=== PATIENT | male | born 1990 | race African-American/Black ===

== ENCOUNTER 2017-09-23 20:14 | Inpatient (IN) | payer MEDICAID, OTHER ==
[~2017-09-23] VITALS: Ht 180.3 cm; Wt 113.4 kg
[~2017-09-23 20:14] MED LIST: ABILIFY
[2017-09-23] MEDS ORDERED: ONDANSETRON HCL 4MG/2ML VIAL IV ONE (21:00)
[2017-09-23] MEDS ORDERED: ACETAMINOPHEN 325MG TABLET PO STA (22:39)
[2017-09-23] MEDS ORDERED: SODIUM CHLORIDE 0.9% 1000ML BAG (SEPSIS BOLUS) IV ONE (22:45)
[2017-09-23 22:53] LABS: BASOPHILS % 0.7 % (0.0-2.0); EOSINOPHILS % 1.7 % (0.0-5.0); HEMATOCRIT. 44.3 % (42.0-52.0); HEMOGLOBIN. 14.8 g/dL (14.0-18.0); LYMPHOCYTES % 9.2 % (20.0-50.0); MEAN CORPUSCULAR HEMOGLOBIN 28.5 pg (28.0-32.0); MEAN CORPUSCULAR VOLUME 85.7 fL (80.0-94.0); MEAN PLATELET VOLUME 10.1 fl (7.4-10.4); MONOCYTES % 7.3 % (2.0-8.0); NEUTROPHILS % 81.1 % (40.0-76.0); PLATELET 229 x1000/uL (130-400); RED BLOOD CELL COUNT 5.17 mill/uL (4.7-6.1); RED CELL DISTRIBUTION WIDTH 13.5 % (11.6-14.6)
[2017-09-23 22:54] LABS: CHLORIDE 105 mEq/L (98-107)
[2017-09-23 23:00] LABS: PARTIAL THROMBOPLASTIN TIME 28.6 sec (23.4-31.0); PROTHROMBIN TIME 10.7 sec (9.4-11.6)
[2017-09-23] MEDS ORDERED: LEVOFLOXACIN 750MG PREMIX 150 ML IV ONE (23:30)
[2017-09-24 03:48] VITALS: BP 117/64
[2017-09-24 03:51] VITALS: BP 117/64
[2017-09-24] MEDS ORDERED: ACETAMINOPHEN 325MG TABLET PO PRN (07:00)
[2017-09-24] MEDS ORDERED: IPRATROPIUM/ALBUTEROL 0.5-3(2.5)MG/3ML NEB HHN PRN (07:00)
[2017-09-24 08:00] VITALS: BP 129/71
[2017-09-24] MEDS ORDERED: SODIUM CHLORIDE 0.45% 1,000 ML IV SCH (08:00)
[2017-09-24] MEDS ORDERED: CEFTRIAXONE 1 G PREMIX 50 ML IV SCH (09:00)
[2017-09-24] MEDS ORDERED: AZITHROMYCIN 500 MG TABLET PO SCH (09:00)
[2017-09-24 10:12] LABS: BASOPHILS % 1.1 % (0.0-2.0); EOSINOPHILS % 2.9 % (0.0-5.0); HEMATOCRIT. 40.2 % (42.0-52.0); HEMOGLOBIN. 13.3 g/dL (14.0-18.0); LYMPHOCYTES % 32.3 % (20.0-50.0); MEAN CORPUSCULAR HEMOGLOBIN 28.5 pg (28.0-32.0); MEAN CORPUSCULAR VOLUME 86.3 fL (80.0-94.0); MEAN PLATELET VOLUME 10.5 fl (7.4-10.4); MONOCYTES % 7.7 % (2.0-8.0); PLATELET 222 x1000/uL (130-400); RED BLOOD CELL COUNT 4.66 mill/uL (4.7-6.1); RED CELL DISTRIBUTION WIDTH 13.9 % (11.6-14.6)
[2017-09-24 10:34] LABS: CHLORIDE 107 mEq/L (98-107)
[2017-09-24 12:00] VITALS: BP 122/76
[2017-09-24] MEDS ORDERED: SODIUM CHL 0.45% + KCL 20MEQ/L 1,000 ML IV SCH (14:00)
[2017-09-24 16:00] VITALS: BP 124/98
[2017-09-24 16:32] LABS: CREATINE KINASE 326 IU/L (39-308)
[2017-09-24 16:33] LABS: CREATINE KINASE MB FRACTION < 0.5 ng/mL (0.5-3.6)
[2017-09-24] MEDS ORDERED: METRONIDAZOLE 500 MG PREMIX 100 ML IV SCH (17:00)
[2017-09-24 17:03] VITALS: BP 122/79
[2017-09-24] MEDS ORDERED: IPRATROPIUM/ALBUTEROL 0.5-3(2.5)MG/3ML NEB HHN SCH (18:00)
[2017-09-24] MEDS ORDERED: GUAIFENESIN 600MG ER TABLET PO SCH (21:00)
[2017-09-25] MEDS ORDERED: LEVOFLOXACIN 500MG TABLET PO SCH ×2 (11:00)
== END 2017-09-24 17:30 | disposition home or self-care (01) | DRG 720 ==
LOC: ER 20:14 → EDBEDREQSVC 22:44 → EDBEDREQ 23:42 → 6WST 23:57 → ENRESERV 23:57
PROVIDERS: ADMIT Internal Medicine; ATTEND Internal Medicine
DX: A41.9 Sepsis, unspecified organism (principal); J96.00 Acute respiratory failure, unspecified whether with hypoxia or hypercapnia; J69.0 Pneumonitis due to inhalation of food and vomit; F84.0 Autistic disorder; E87.6 Hypokalemia; R13.10 Dysphagia, unspecified
CPT/HCPCS: 36415; 71045; 80048; 80053; 82550; 82553; 83605; 83880; 84145; 84484; 85025; 85379; 85610; 85730; 87040; 93005; 93970; 96365; 96366; 96375; 99291; J0696; J1956; J2405; J3480; J3490; J7030

== ENCOUNTER 2022-06-02 13:30 | Inpatient (IN) | payer MEDICAID, OTHER ==
[~2022-06-02] VITALS: Ht 170.2 cm; Wt 118.4 kg
[2022-06-02] MEDS ORDERED: SODIUM CHLORIDE 0.9% 2,000 ML IV ONE (14:00)
[2022-06-02 14:02] LABS: BASOPHILS % 0.1 % (0.0-2.0); EOSINOPHILS % 0.3 % (0.0-5.0); HEMATOCRIT. 43.6 % (42.0-52.0); HEMOGLOBIN. 14.6 g/dL (14.0-18.0); LYMPHOCYTES % 8.7 % (20.0-50.0); MEAN CORPUSCULAR HEMOGLOBIN 28.8 pg (28.0-32.0); MEAN CORPUSCULAR VOLUME 85.9 fL (80.0-94.0); MEAN PLATELET VOLUME 9.5 fl (7.4-10.4); MONOCYTES % 4.2 % (2.0-8.0); NEUTROPHILS % 86.7 % (40.0-76.0); PLATELET 217 x1000/uL (130-400); RED BLOOD CELL COUNT 5.07 mill/uL (4.7-6.1); RED CELL DISTRIBUTION WIDTH 13.8 % (11.6-14.6)
[2022-06-02 14:10] LABS: CHLORIDE 106 mEq/L (98-107)
[2022-06-02] MEDS ORDERED: ACETAMINOPHEN 325MG TABLET PO ONE (14:15)
[2022-06-02] MEDS ORDERED: KETOROLAC 30MG/ML VIAL IV ONE (15:45)
[2022-06-02] MEDS ORDERED: DOCUSATE SODIUM 100MG CAPSULE PO PRN (18:30)
[2022-06-02] MEDS ORDERED: ACETAMINOPHEN 325MG TABLET PO PRN (18:30)
[2022-06-02] MEDS ORDERED: LORAZEPAM 0.5MG TABLET PO PRN (18:30)
[2022-06-02] MEDS ORDERED: IPRATROPIUM/ALBUTEROL 0.5-3(2.5)MG/3ML NEB HHN PRN (18:30)
[2022-06-02] MEDS ORDERED: ONDANSETRON HCL 4MG/2ML INJ IV PRN (18:30)
[2022-06-02] MEDS ORDERED: CLONIDINE 0.1MG TABLET PO PRN (18:30)
[2022-06-02] MEDS ORDERED: NALOXONE HCL 0.4MG/ML VIAL IV PRN (18:30)
[2022-06-02 20:00] VITALS: BP 143/89
[2022-06-02 20:14] VITALS: BP 143/89
[2022-06-02] MEDS ORDERED: ABIL5 PO (20:21)
[2022-06-02] MEDS: ACETAMINOPHEN 325MG TABLET PO PRN (20:38)
[2022-06-02] MEDS: HYDROCODONE/ACETAMINOPHEN 5/325MG TABLET PO PRN (23:26)
[2022-06-02 23:56] VITALS: BP 126/64
[2022-06-03 04:00] VITALS: BP 119/70
[2022-06-03] MEDS: HYDROCODONE/ACETAMINOPHEN 5/325MG TABLET PO PRN (04:01)
[2022-06-03 06:47] LABS: BASOPHILS % 0.4 % (0.0-2.0); HEMATOCRIT. 38.4 % (42.0-52.0); HEMOGLOBIN. 13.1 g/dL (14.0-18.0); LYMPHOCYTES % 44.3 % (20.0-50.0); MEAN CORPUSCULAR HEMOGLOBIN 29.6 pg (28.0-32.0); MEAN CORPUSCULAR VOLUME 86.6 fL (80.0-94.0); MEAN PLATELET VOLUME 10.2 fl (7.4-10.4); MONOCYTES % 7.8 % (2.0-8.0); NEUTROPHILS % 46.5 % (40.0-76.0); PLATELET 193 x1000/uL (130-400); RED BLOOD CELL COUNT 4.44 mill/uL (4.7-6.1); RED CELL DISTRIBUTION WIDTH 13.7 % (11.6-14.6)
[2022-06-03 07:29] LABS: CHLORIDE 106 mEq/L (98-107)
[2022-06-03 07:49] VITALS: BP 123/74
[2022-06-03] MEDS: ARIPIPRAZOLE 5MG TABLET PO SCH (09:45)
[2022-06-03] MEDS ORDERED: POTASSIUM CHLORIDE 20MEQ TABLET SR PO NR (10:00)
[2022-06-03 11:27] VITALS: BP 142/86
[2022-06-03 12:39] LABS: CLARITY URINE CLEAR (CLEAR); COLOR URINE YELLOW (YELLOW); KETONES URINE NEGATIVE (NEGATIVE); LEUKOCYTE ESTERASE URINE NEGATIVE (NEGATIVE); NITRITE URINE NEGATIVE (NEGATIVE); OCCULT BLOOD URINE NEGATIVE (NEGATIVE); PH URINE 6.5 (4.5-8.0); PROTEIN URINE NEGATIVE (NEGATIVE); SPECIFIC GRAVITY URINE 1.005 (1.005-1.030)
[2022-06-03 12:53] LABS: *AMPHETAMINES SCREEN URINE NEGATIVE (NEGATIVE); *BARBITURATES SCREEN URINE NEGATIVE (NEGATIVE); *BENZODIAZEPINES SCREEN URINE NEGATIVE (NEGATIVE); *COCAINE SCREEN URINE NEGATIVE (NEGATIVE); CANNABINOID URINE SCREEN NEGATIVE (NEGATIVE); METHADONE URINE SCREEN NEGATIVE (NEGATIVE); OPIATES URINE SCREEN PRESUMTIVE POSITIVE (NEGATIVE); PHENCYCLIDINE URINE SCREEN NEGATIVE (NEGATIVE)
[2022-06-03] MEDS: ACETAMINOPHEN 325MG TABLET PO PRN ×2 (14:22→21:09)
[2022-06-03 15:52] VITALS: BP 139/89
[2022-06-03 20:00] VITALS: BP 121/61
[2022-06-03 23:57] VITALS: BP 106/74
[2022-06-04] MEDS: ACETAMINOPHEN 325MG TABLET PO PRN ×2 (03:45→09:43)
[2022-06-04 04:00] VITALS: BP 122/63
[2022-06-04] MEDS: HYDROCODONE/ACETAMINOPHEN 5/325MG TABLET PO PRN (07:17)
[2022-06-04 07:19] LABS: BASOPHILS % 0.4 % (0.0-2.0); EOSINOPHILS % 1.9 % (0.0-5.0); HEMATOCRIT. 40.2 % (42.0-52.0); HEMOGLOBIN. 13.7 g/dL (14.0-18.0); LYMPHOCYTES % 38.6 % (20.0-50.0); MEAN CORPUSCULAR HEMOGLOBIN 29.3 pg (28.0-32.0); MEAN CORPUSCULAR VOLUME 86.1 fL (80.0-94.0); MEAN PLATELET VOLUME 9.8 fl (7.4-10.4); NEUTROPHILS % 51.1 % (40.0-76.0); PLATELET 205 x1000/uL (130-400); RED BLOOD CELL COUNT 4.66 mill/uL (4.7-6.1); RED CELL DISTRIBUTION WIDTH 13.7 % (11.6-14.6)
[2022-06-04 07:29] LABS: CHLORIDE 105 mEq/L (98-107)
[2022-06-04 08:00] VITALS: BP 132/92
[2022-06-04] MEDS: ARIPIPRAZOLE 5MG TABLET PO SCH (08:06)
[2022-06-04 12:00] VITALS: BP 128/62
[2022-06-04 15:06] VITALS: BP 125/74
== END 2022-06-04 15:28 | disposition home or self-care (01) | DRG 201 ==
LOC: ER 13:42 → 3WST 17:54 → EDBEDREQ 17:59 → ENRESERV 18:12
PROVIDERS: ADMIT Internal Medicine; ATTEND Internal Medicine
DX: I47.1 Supraventricular tachycardia (principal); A08.4 Viral intestinal infection, unspecified; E87.6 Hypokalemia; F84.0 Autistic disorder; Z20.822 Contact with and (suspected) exposure to COVID-19; R03.0 Elevated blood-pressure reading, without diagnosis of hypertension
CPT/HCPCS: 36415; 71045; 80048; 80053; 80305; 81003; 83880; 84484; 85025; 87426; 93005; 93306; 99291; C9803; J7030

== ENCOUNTER 2023-11-29 03:17 | Emergency (ER) | payer MEDICAID, OTHER ==
[~2023-11-29] VITALS: Ht 175.3 cm; Wt 91.0 kg
[~2023-11-29 03:17] MED LIST changes: +ABIL5 PO; -ABILIFY
[2023-11-29 03:20] VITALS: O2SAT 98
[2023-11-29 04:16] LABS: CHLORIDE 111 mEq/L (98-107); POTASSIUM 3.6 mEq/L (3.5-5.1); SODIUM 144 mEq/L (136-145)
[2023-11-29 04:17] LABS: CALCIUM 9.1 mg/dL (8.7-10.4); CARBON DIOXIDE 27 mEq/L (21-32)
[2023-11-29 04:22] LABS: GLUCOSE 110 mg/dL (70-105); UREA NITROGEN BLOOD 11 mg/dL (9-23)
[2023-11-29 04:24] LABS: ACETAMINOPHEN < 2 ug/mL (10-30)
[2023-11-29 04:26] LABS: ETHANOL BLOOD < 10 mg/dL (<10)
[2023-11-29 04:45] LABS: BASOPHILS % 0.7 % (0.0-2.0); EOSINOPHILS % 1.1 % (0.0-5.0); HEMATOCRIT. 41.1 % (42.0-52.0); HEMOGLOBIN. 13.5 g/dL (14.0-18.0); LYMPHOCYTES % 36.3 % (20.0-50.0); MEAN CORPUSCULAR HEMOGLOBIN 29.2 pg (28.0-32.0); MEAN CORPUSCULAR HGB CONC 32.8 g/dL (31.0-37.0); MEAN CORPUSCULAR VOLUME 89.1 fL (80.0-94.0); MEAN PLATELET VOLUME 9.7 fl (7.4-10.4); MONOCYTES % 5.4 % (2.0-8.0); NEUTROPHILS % 56.5 % (40.0-76.0); PLATELET 215 x1000/uL (130-400); RED BLOOD CELL COUNT 4.61 mill/uL (4.7-6.1); RED CELL DISTRIBUTION WIDTH 14.3 % (11.6-14.6); WHITE BLOOD COUNT 5.7 x1000/uL (4.5-11.0)
[2023-11-29] MEDS: ACETAMINOPHEN 650MG/20.3ML UDC PO NR (08:49)
[2023-11-29 11:51] VITALS: BP 127/72; PULSE 84; RESP 18; TEMP 36.89184; O2SAT 98
== END 2023-11-29 12:22 | disposition home or self-care (01) ==
LOC: ER 03:17
DX: R45.851 Suicidal ideations (principal); Z98.890 Other specified postprocedural states
CPT/HCPCS: 36415; 80048; 80307; 80320; 80329; 85025; 93005; 99285; G0480

== ENCOUNTER 2024-07-07 02:33 | Emergency (ER) | payer MEDICAID ==
[~2024-07-07] VITALS: Ht 177.8 cm; Wt 112.0 kg
[2024-07-07 02:37] VITALS: O2SAT 98
[2024-07-07 03:06] LABS: BASOPHILS % 0.2 % (0.0-2.0); EOSINOPHILS % 0.3 % (0.0-5.0); HEMATOCRIT. 44.3 % (42.0-52.0); HEMOGLOBIN. 14.5 g/dL (14.0-18.0); LYMPHOCYTES % 13.7 % (20.0-50.0); MEAN CORPUSCULAR HEMOGLOBIN 28.7 pg (28.0-32.0); MEAN CORPUSCULAR HGB CONC 32.9 g/dL (31.0-37.0); MEAN CORPUSCULAR VOLUME 87.2 fL (80.0-94.0); MEAN PLATELET VOLUME 9.6 fl (7.4-10.4); MONOCYTES % 4.8 % (2.0-8.0); PLATELET 190 x1000/uL (130-400); RED BLOOD CELL COUNT 5.07 mill/uL (4.7-6.1); RED CELL DISTRIBUTION WIDTH 13.7 % (11.6-14.6); WHITE BLOOD COUNT 6.8 x1000/uL (4.5-11.0)
[2024-07-07 03:36] LABS: INR 0.9; PROTHROMBIN TIME 10.1 sec (9.6-11.0)
[2024-07-07 03:39] LABS: CHLORIDE 109 mEq/L (98-107); POTASSIUM 3.5 mEq/L (3.5-5.1); SODIUM 141 mEq/L (136-145)
[2024-07-07 03:41] LABS: CALCIUM 9.2 mg/dL (8.7-10.4); CARBON DIOXIDE 26 mEq/L (21-32)
[2024-07-07] MEDS: MAGNESIUM/ALUMINUM HYDROXIDE/SIMETHICONE 30ML UDC PO STA (03:44)
[2024-07-07] MEDS: ONDANSETRON HCL 4MG/2ML INJ IV STA (03:45)
[2024-07-07] MEDS: ACETAMINOPHEN 325MG TABLET PO ONE (03:45)
[2024-07-07 03:46] LABS: CREATININE 0.8 mg/dL (0.6-1.3); GLUCOSE 120 mg/dL (70-105); UREA NITROGEN BLOOD 18 mg/dL (9-23)
[2024-07-07] MEDS: SODIUM CHLORIDE 0.9% 1,000 ML IV ONE (03:46)
[2024-07-07 03:47] LABS: CLARITY URINE CLOUDY (CLEAR); COLOR URINE YELLOW (YELLOW); GLUCOSE URINE NEGATIVE (NEGATIVE); KETONES URINE TRACE (NEGATIVE); LEUKOCYTE ESTERASE URINE NEGATIVE (NEGATIVE); NITRITE URINE NEGATIVE (NEGATIVE); OCCULT BLOOD URINE NEGATIVE (NEGATIVE); PH URINE 5.5 (4.5-8.0); PROTEIN URINE NEGATIVE (NEGATIVE); SPECIFIC GRAVITY URINE 1.033 (1.005-1.030); UROBILINOGEN URINE 0.2 E.U./dL (0.2-1.0)
[2024-07-07 03:47] LABS: ETHANOL BLOOD < 10 mg/dL (<10)
[2024-07-07 03:48] LABS: ALANINE AMINOTRANSFERASE 53 IU/L (10-49); ALBUMIN 4.1 g/dL (3.2-4.8); ASPARTATE AMINOTRANSFERASE 28 IU/L (<34); BILIRUBIN DIRECT < 0.1 mg/dL (<=3.0); BILIRUBIN TOTAL 0.4 mg/dL (0.1-1.0)
[2024-07-07 03:52] LABS: *AMPHETAMINES SCREEN URINE NEGATIVE (NEGATIVE); *BARBITURATES SCREEN URINE NEGATIVE (NEGATIVE); *BENZODIAZEPINES SCREEN URINE NEGATIVE (NEGATIVE); *COCAINE SCREEN URINE NEGATIVE (NEGATIVE); CANNABINOID URINE SCREEN NEGATIVE (NEGATIVE); ECSTASY MDMA SCREEN URINE NEGATIVE (NEGATIVE); METHADONE URINE SCREEN NEGATIVE (NEGATIVE); OPIATES URINE SCREEN NEGATIVE (NEGATIVE); PHENCYCLIDINE URINE SCREEN NEGATIVE (NEGATIVE)
[2024-07-07 04:07] LABS: SQUAMOUS EPITHELIAL CELL URINE NONE SEEN /lpf (RARE/1+)
[2024-07-07 04:08] LABS: AMORPHOUS SEDIMENT URINE 1+ /lpf; BACTERIA URINE NONE SEEN; RBC URINE NONE SEEN /hpf (0-2); WBC URINE 0-2 /hpf (0-2)
[2024-07-07] MEDS: KETOROLAC 15MG/ML VIAL IV NR (04:31)
[2024-07-07] MEDS ORDERED: PROT40 MT (05:07)
[2024-07-07 08:12] VITALS: BP 118/66; PULSE 89; RESP 16; TEMP 37; O2SAT 98
[2024-07-08] MEDS ORDERED: FAMO-135 MT (21:35)
[2024-07-08] MEDS ORDERED: LACT1CAP78 MT (21:35)
== END 2024-07-07 08:14 | disposition home or self-care (01) ==
LOC: ER 02:33
DX: K76.0 Fatty (change of) liver, not elsewhere classified (principal); F84.0 Autistic disorder; Z00.00 Encounter for general adult medical examination without abnormal findings
CPT/HCPCS: 80076; 80305; 80048; 81003; 80320; 83690; 85025; 85610; 36415; 76705; 96361; 96374; 96375; 99285; J1885; J2405; J7030; G0480

== ENCOUNTER 2024-07-07 18:18 | Emergency (ER) | payer MEDICAID ==
[~2024-07-07] VITALS: Ht 175.3 cm; Wt 97.0 kg
[~2024-07-07 18:18] MED LIST changes: +PROT40 MT
[2024-07-07 18:20] VITALS: O2SAT 98
[2024-07-07 19:05] LABS: BASOPHILS % 0.3 % (0.0-2.0); EOSINOPHILS % 0.4 % (0.0-5.0); HEMATOCRIT. 42.9 % (42.0-52.0); HEMOGLOBIN. 14.1 g/dL (14.0-18.0); LYMPHOCYTES % 20.2 % (20.0-50.0); MEAN CORPUSCULAR HEMOGLOBIN 28.9 pg (28.0-32.0); MEAN CORPUSCULAR HGB CONC 32.8 g/dL (31.0-37.0); MEAN CORPUSCULAR VOLUME 88.2 fL (80.0-94.0); MEAN PLATELET VOLUME 9.5 fl (7.4-10.4); MONOCYTES % 6.9 % (2.0-8.0); NEUTROPHILS % 72.2 % (40.0-76.0); PLATELET 181 x1000/uL (130-400); RED BLOOD CELL COUNT 4.86 mill/uL (4.7-6.1); RED CELL DISTRIBUTION WIDTH 13.8 % (11.6-14.6); WHITE BLOOD COUNT 5.1 x1000/uL (4.5-11.0)
[2024-07-07] MEDS: KETOROLAC 30MG/ML VIAL IM NR (19:09)
[2024-07-07 19:14] LABS: CHLORIDE 109 mEq/L (98-107); POTASSIUM 3.7 mEq/L (3.5-5.1); SODIUM 141 mEq/L (136-145)
[2024-07-07 19:15] LABS: CARBON DIOXIDE 26 mEq/L (21-32)
[2024-07-07 19:16] LABS: CALCIUM 8.7 mg/dL (8.7-10.4)
[2024-07-07 19:20] LABS: CREATININE 0.7 mg/dL (0.6-1.3)
[2024-07-07 19:21] LABS: ETHANOL BLOOD < 10 mg/dL (<10); GLUCOSE 103 mg/dL (70-105); UREA NITROGEN BLOOD 11 mg/dL (9-23)
[2024-07-07 19:22] LABS: ALANINE AMINOTRANSFERASE 42 IU/L (10-49); ALBUMIN 3.9 g/dL (3.2-4.8); ASPARTATE AMINOTRANSFERASE 23 IU/L (<34)
[2024-07-07 19:23] LABS: BILIRUBIN DIRECT 0.1 mg/dL (<=3.0); BILIRUBIN TOTAL 0.5 mg/dL (0.1-1.0); PROTEIN TOTAL 6.5 g/dL (6.0-8.3)
[2024-07-07 19:52] LABS: TROPONIN I HIGH SENSITIVITY < 4 ng/L (3.0-53)
[2024-07-07] MEDS: AZITHROMYCIN 500 MG TABLET PO ONE (20:05)
[2024-07-07 20:15] VITALS: BP 122/86; PULSE 102; RESP 17; TEMP 36.8; O2SAT 98
[2024-07-08] MEDS ORDERED: LACT1CAP78 MT (21:35)
[2024-07-08] MEDS ORDERED: FAMO-135 MT (21:35)
== END 2024-07-07 20:32 | disposition home or self-care (01) ==
LOC: ER 18:18
DX: K52.89 Other specified noninfective gastroenteritis and colitis (principal); R19.7 Diarrhea, unspecified; F84.0 Autistic disorder; Z79.899 Other long term (current) drug therapy
CPT/HCPCS: 80076; 80048; 80320; 83690; 85025; 84484; 36415; 74176; 96372; 99285; J1885; G0480

== ENCOUNTER 2024-07-08 19:25 | Emergency (ER) | payer MEDICAID ==
[~2024-07-08] VITALS: Ht 170.2 cm; Wt 75.0 kg
[2024-07-08 19:38] VITALS: BP 136/86; PULSE 104; RESP 16; TEMP 36.3; O2SAT 96
[2024-07-08] MEDS: ACETAMINOPHEN 325MG TABLET PO ONE (21:08)
[2024-07-08] MEDS: ONDANSETRON 4MG ODT PO ONE (21:08)
[2024-07-08 21:09] LABS: BASOPHILS % 0.5 % (0.0-2.0); EOSINOPHILS % 1.9 % (0.0-5.0); HEMATOCRIT. 45.5 % (42.0-52.0); HEMOGLOBIN. 14.8 g/dL (14.0-18.0); MEAN CORPUSCULAR HEMOGLOBIN 28.7 pg (28.0-32.0); MEAN CORPUSCULAR HGB CONC 32.6 g/dL (31.0-37.0); MEAN CORPUSCULAR VOLUME 88.1 fL (80.0-94.0); MEAN PLATELET VOLUME 9.3 fl (7.4-10.4); MONOCYTES % 8.8 % (2.0-8.0); NEUTROPHILS % 50.8 % (40.0-76.0); PLATELET 203 x1000/uL (130-400); RED BLOOD CELL COUNT 5.16 mill/uL (4.7-6.1); WHITE BLOOD COUNT 4.8 x1000/uL (4.5-11.0)
[2024-07-08 21:17] LABS: CHLORIDE 110 mEq/L (98-107); POTASSIUM 3.5 mEq/L (3.5-5.1); SODIUM 141 mEq/L (136-145)
[2024-07-08 21:18] LABS: CARBON DIOXIDE 23 mEq/L (21-32)
[2024-07-08 21:23] LABS: CREATININE 0.7 mg/dL (0.6-1.3); GLUCOSE 117 mg/dL (70-105); UREA NITROGEN BLOOD 11 mg/dL (9-23)
[2024-07-08 21:24] LABS: ETHANOL BLOOD < 10 mg/dL (<10)
[2024-07-08 21:25] LABS: ALANINE AMINOTRANSFERASE 39 IU/L (10-49); ALBUMIN 4.1 g/dL (3.2-4.8); ASPARTATE AMINOTRANSFERASE 20 IU/L (<34); BILIRUBIN DIRECT < 0.1 mg/dL (<=3.0); BILIRUBIN TOTAL 0.3 mg/dL (0.1-1.0)
[2024-07-08] MEDS ORDERED: LACT1CAP78 MT (21:35)
[2024-07-08] MEDS ORDERED: FAMO-135 MT (21:35)
== END 2024-07-08 22:09 | disposition home or self-care (01) ==
LOC: ER 19:25
DX: K52.9 Noninfective gastroenteritis and colitis, unspecified (principal); Z79.899 Other long term (current) drug therapy
CPT/HCPCS: 80076; 80048; 80320; 83690; 85025; 36415; 99283; Q0162; G0480

== ENCOUNTER 2024-11-14 01:36 | Emergency (ER) | payer MEDICAID ==
[~2024-11-14] VITALS: Ht 175.3 cm; Wt 115.9 kg
[~2024-11-14 01:36] MED LIST changes: +CLAR10 PO; +FAMO-135 MT; +FLUT9.9S BOTHNSTRLS; +IBUP-1455 MT; +IBUP-2028 MT; +LACT1CAP78 MT; +MECL-299 MT; +METH4TAB95 MT
[2024-11-14 01:37] VITALS: O2SAT 100
[2024-11-14 02:08] VITALS: BP 139/84; PULSE 96; RESP 16; TEMP 36.7; O2SAT 98
[2024-11-26] MEDS ORDERED: IBUP-1455 MT (20:07)
[2024-11-26] MEDS ORDERED: ACET-2708 MT (20:07)
[2024-11-29] MEDS ORDERED: METH4TAB95 MT (12:34)
== END 2024-11-14 02:20 | disposition home or self-care (01) ==
LOC: MERGE 01:36 → ER 01:36
DX: Z00.00 Encounter for general adult medical examination without abnormal findings (principal); I10 Essential (primary) hypertension; Z79.899 Other long term (current) drug therapy
CPT/HCPCS: 99281; 99282